=== PATIENT | female | born 1970 | race Caucasian/White ===

== ENCOUNTER 2018-04-03 11:32 | Emergency (ER) | payer OTHER | END 2018-04-03 15:10 | disposition home or self-care (01) | LOC: FTE 11:32 | DX: M71.22 Synovial cyst of popliteal space [Baker], left knee (principal); J45.909 Unspecified asthma, uncomplicated | CPT/HCPCS: 93970; 99284-25 ==

== ENCOUNTER 2018-04-08 14:16 | Emergency (ER) | payer OTHER ==
[2018-04-08 14:42] LABS: ADD MAN DIFF? NO
[2018-04-08] MEDS: ALBUTEROL 0.083% (NEB) 2.5 MG/3 ML AMP NEB (14:46)
[2018-04-08] MEDS: IPRATROPIUM (NEB) 0.5 MG/2.5 ML AMP NEB (14:47)
[2018-04-08 15:05] LABS: INR 0.96; PROTIME 12.9 Sec (11.9-14.9)
[2018-04-08 15:06] LABS: PARTIAL THROMBOPLASTIN TIME 31.2 Sec (23.0-35.0)
[2018-04-08 15:07] LABS: ANION GAP 17 (8-16); BLOOD UREA NITROGEN 9 mg/dl (7-20); CALCIUM 9.4 mg/dl (8.4-10.2); CARBON DIOXIDE 26 mmol/L (21-31); CHLORIDE 104 mmol/L (97-110); CREATININE 0.68 mg/dl (0.44-1.00); GLUCOSE 131 mg/dl (70-220); POTASSIUM 3.7 mmol/L (3.5-5.1); SODIUM 143 mmol/L (135-144)
[2018-04-08 15:13] LABS: BASOPHILS % 0.3 % (0.0-2.0); EOSINOPHILS # 0.4 10^3/ul (0.0-0.5); EOSINOPHILS % 4.5 % (0.0-7.0); HEMATOCRIT 41.8 % (37.0-47.0); HEMOGLOBIN 14.1 g/dl (12.0-16.0); LYMPHOCYTES # 1.4 10^3/ul (0.8-2.9); LYMPHOCYTES % 15.6 % (15.0-51.0); MEAN CORPUSCULAR HEMOGLOBIN 28.6 pg (29.0-33.0); MEAN CORPUSCULAR HGB CONC 33.7 g/dl (32.0-37.0); MEAN CORPUSCULAR VOLUME 84.8 fl (82.0-101.0); MONOCYTE # 0.5 10^3/ul (0.3-0.9); MONOCYTES % 5.4 % (0.0-11.0); NEUTROPHIL # 6.4 10^3/ul (1.6-7.5); NEUTROPHILS % 73.9 % (39.0-77.0); PLATELET COUNT 195 10^3/UL (140-415); RED BLOOD COUNT 4.93 10^6/ul (4.20-5.40); RED CELL DISTRIBUTION WIDTH 13.6 % (11.5-14.5)
[2018-04-08 15:13] LABS: WHITE BLOOD COUNT 8.7 10^3/ul (4.8-10.8)
[2018-04-08 15:20] LABS: B-TYPE NATRIURETIC PEPTIDE 36 PG/ML (0-125); TROPONIN-I < 0.012 ng/ml (0.000-0.120)
[2018-04-08] MEDS: SOD CHLORIDE 0.9% 1,000 ML IV (15:53)
[2018-04-08] MEDS: SOD CHLORIDE 0.9% 100 ML (16:12)
[2018-04-08] MEDS: IOHEXOL 100 ML (16:12)
[2018-04-08] MEDS: KETOROLAC 15 MG INJ IV (17:37)
== END 2018-04-08 18:07 | disposition home or self-care (01) ==
LOC: E/R 14:16
DX: J45.901 Unspecified asthma with (acute) exacerbation (principal)
CPT/HCPCS: 36415; 71045; 71275; 80048; 81025; 83880; 84484; 85025; 85610; 85730; 93005; 94664; 96374; 99285-25

== ENCOUNTER 2018-12-14 12:07 | Emergency (ER) | payer OTHER | END 2018-12-14 13:27 | disposition home or self-care (01) | LOC: FTE 13:27 | DX: M76.892 Other specified enthesopathies of left lower limb, excluding foot (principal); J45.909 Unspecified asthma, uncomplicated | CPT/HCPCS: 73610; 99283-25 ==